=== PATIENT | female | born 1995 | race Caucasian/White ===

== ENCOUNTER 2025-05-22 19:26 | Inpatient (IN) | payer OTHER, SELFPAY ==
[2025-05-22 19:42] VITALS: BP 113/83; BMI 27.5
[2025-05-22] MEDS: CYTOTEC 50 MICROGRAM VAG (20:16)
[2025-05-22 20:21] LABS: Hematocrit 37.2 % (37.0-47.0); Hemoglobin 13.0 g/dL (12.0-16.0); Mean Corp Hgb Conc. 34.9 g/dL (33.0-37.0); Mean Corpuscular Volume 83.6 fL (81.0-99.0); Nucleated Red Blood Cells % 0 %; Platelet Count 244 10^3/uL (130-400); Red Cell Dist. Width 12.3 % (11.5-14.5)
[2025-05-22] MEDS: LR 1000 IV (23:13)
[2025-05-23] MEDS: CYTOTEC 25 MICROGRAM PO (01:04)
[2025-05-23] MEDS: SUBLIMAZE 100 MCG EPIDURAL (01:45)
[2025-05-23] MEDS: FENTANYL/BUPIVACAINE 100 EPIDURAL ×2 (01:46→11:45)
[2025-05-23] MEDS: LR 1000 IV ×2 (02:24→06:27)
[2025-05-23] MEDS: CYTOTEC PO ×3 (04:00→12:19)
[2025-05-23] MEDS: PITOCIN 30 UNITS/NSS 500 ML IV (12:50)
[2025-05-23] MEDS: COLACE 100 MG PO (19:38)
[2025-05-23] MEDS: MOTRIN 600 MG PO (19:40)
[2025-05-23] MEDS: TYLENOL 650 MG PO (19:40)
[2025-05-24] MEDS: TYLENOL 650 MG PO ×3 (00:11→07:29)
[2025-05-24] MEDS: MOTRIN 600 MG PO ×3 (03:52→19:23)
[2025-05-24 04:21] LABS: Hematocrit 36.5 % (37.0-47.0); Hemoglobin 12.6 g/dL (12.0-16.0)
[2025-05-24] MEDS: COLACE 100 MG PO ×2 (07:28→19:23)
[2025-05-24] MEDS: PRENATAL PLUS 1 TABLET PO (07:28)
[2025-05-25] MEDS: COLACE 100 MG PO (08:53)
[2025-05-25] MEDS: MOTRIN 600 MG PO (08:53)
[2025-05-25] MEDS: PRENATAL PLUS 1 TABLET PO (08:53)
[2025-05-25 11:13] LABS: Syphilis/T. pallidum Ab Reflex Negative (Negative)
== END 2025-05-25 10:52 | disposition home or self-care (01) | DRG 807 ==
LOC: LDRP 19:26
PROVIDERS: Obstetrics & Gynecology; ADMITTING PHYSICIAN Obstetrics & Gynecology
PROC: 3E033VJ Introduction of Other Hormone into Peripheral Vein, Percutaneous Approach (ICD-10-PCS; 2025-05-22)
PROC: 0KQM0ZZ Repair Perineum Muscle, Open Approach (ICD-10-PCS; 2025-05-23)
PROC: 10907ZC Drainage of Amniotic Fluid, Therapeutic from Products of Conception, Via Natural or Artificial Opening (ICD-10-PCS; 2025-05-23)
PROC: 10E0XZZ Delivery of Products of Conception, External Approach (ICD-10-PCS; 2025-05-23)
DX: O48.0 Post-term pregnancy (principal); Z37.0 Single live birth; O70.1 Second degree perineal laceration during delivery
CPT/HCPCS: 85014; 85018; 85025; 86780; 86850; 86900; 86901